=== PATIENT | female | born 1965 | race Caucasian/White ===

== ENCOUNTER → 2020-04-14 14:35 | Outpatient (BNVA) | payer MEDICARE, OTHER, SELFPAY | PROVIDERS: Family Provider Family Medicine; PCP Family Medicine; Visit Provider Family Medicine | DX: K21.9 Gastro-esophageal reflux disease without esophagitis (principal); K22.2 Esophageal obstruction; E11.9 Type 2 diabetes mellitus without complications; I10 Essential (primary) hypertension; Z79.4 Long term (current) use of insulin; M79.7 Fibromyalgia; E11.42 Type 2 diabetes mellitus with diabetic polyneuropathy; R11.0 Nausea; E78.2 Mixed hyperlipidemia; G25.0 Essential tremor; E87.1 Hypo-osmolality and hyponatremia; E78.5 Hyperlipidemia, unspecified | CPT/HCPCS: 85025 ==

== ENCOUNTER → 2020-05-29 16:15 | Outpatient (BNVA) | payer MEDICARE, OTHER, SELFPAY | PROVIDERS: Family Provider Family Medicine; PCP Family Medicine; Visit Provider Internal Medicine | DX: E11.9 Type 2 diabetes mellitus without complications (principal); Z79.4 Long term (current) use of insulin | CPT/HCPCS: 36415; 80053; 83036; 84443; 84681; 85025 ==

== ENCOUNTER → 2020-10-02 12:30 | Outpatient (BNVA) | payer MEDICARE, OTHER, SELFPAY | PROVIDERS: Family Provider Family Medicine; PCP Family Medicine; Referring Provider Family Medicine; Visit Provider Anesthesiology Pain Medicine | DX: G89.29 Other chronic pain (principal); M54.9 Dorsalgia, unspecified; M54.2 Cervicalgia; M25.511 Pain in right shoulder; M79.7 Fibromyalgia; G47.33 Obstructive sleep apnea (adult) (pediatric); F31.32 Bipolar disorder, current episode depressed, moderate; F43.12 Post-traumatic stress disorder, chronic; F41.1 Generalized anxiety disorder | CPT/HCPCS: 99205 ==

== ENCOUNTER → 2021-01-28 16:12 | Outpatient (BNVA) | payer MEDICARE, OTHER, SELFPAY | PROVIDERS: Family Provider Family Medicine; PCP Family Medicine; Visit Provider Family Medicine | DX: Z79.4 Long term (current) use of insulin; M79.7 Fibromyalgia; E11.42 Type 2 diabetes mellitus with diabetic polyneuropathy; I10 Essential (primary) hypertension; K22.2 Esophageal obstruction; K21.9 Gastro-esophageal reflux disease without esophagitis; R11.0 Nausea; T78.40XA Allergy, unspecified, initial encounter; Z79.899 Other long term (current) drug therapy; E78.2 Mixed hyperlipidemia; T78.40XD Allergy, unspecified, subsequent encounter | CPT/HCPCS: 80053; 80061; 80164; 83036 ==

== ENCOUNTER → 2021-03-27 15:43 | Outpatient (BNVA) | payer MEDICARE, OTHER, SELFPAY | PROVIDERS: Family Provider Family Medicine; PCP Family Medicine; Visit Provider Nurse Practitioner Family | DX: M54.9 Dorsalgia, unspecified (principal); M79.7 Fibromyalgia; R81 Glycosuria | CPT/HCPCS: 81000 ==

== ENCOUNTER → 2021-05-26 15:44 | Outpatient (BNVA) | payer MEDICARE, OTHER, SELFPAY | PROVIDERS: Family Provider Family Medicine; PCP Family Medicine; Visit Provider Internal Medicine | DX: Z20.822 Contact with and (suspected) exposure to COVID-19 (principal); R10.9 Unspecified abdominal pain | CPT/HCPCS: 87635 ==

== ENCOUNTER 2021-05-29 08:06 | Day surgery (SDC) | payer MEDICARE, OTHER, SELFPAY ==
[2021-05-27 11:48] VITALS: BMI 33.3
--- NOTE | 2021-05-29 08:27 | ANES.PREANE2 ---
Pre-Anesthetic Assessment Pre-Anesthetic Assessment: Height/Weight: Height 1.7 m Weight 96.615 kg Preop Diagnosis: n/v Proposed Procedure: Operation Date: 05/29/21 09:15 Proposed Procedures p EGD Dilation W/ Bougie [id number] R10.9(Not Applicable) - Eamon Valenzuela MD Was Beta Verónica taken within 24 hours: N/A Was Clonidine taken within 24 hours: N/A Social: Social History: No alcohol and No tobacco Exam: Pre-Anes Outpt Exam: alert, oriented x 3, clear to auscultation bilaterally and regular rate & rhythm Airway: Submandibular: WNL Cervical ROM: WNL MP: 2 Dentition: Full Pulmonary: Pulmonary: Sleep apnea CV/HEM: CV/HEM: HTN GI: GI: GERD Metabolic: Metabolic: DM and Hyperlipidemia Musc/skel: Musc/skel: OA/DJD Neuropsych: Neuropsych: Anxiety, Depression and Neuropathy Anesthetic Plan: ASA status: 3 Anesthesia: MAC Risk of > 500 ml blood loss (7ml/kg in children): No PFSH Anesthesia PFSH: Medical History (Updated 05/13/21 @ 14:50 by Eamon Valenzuela MD) Allergies Aneurysm Benign hypertension Bipolar disorder, current episode depressed, moderate Cholecystectomy planned Chronic post-traumatic stress disorder Common migraine with intractable migraine Constipation Creatinine elevation Degenerative disk disease Diabetic peripheral neuropathy Essential tremor Fibromyalgia Generalized anxiety disorder GERD (gastroesophageal reflux disease) Hyperlipidemia Hyponatremia Lumbar disc herniation Lupus (systemic lupus erythematosus) Nausea Obstructive sleep apnea (adult) (pediatric) Obstructive sleep apnea (adult) (pediatric) Type 2 diabetes mellitus without complications Surgical History S/P aneurysm repair S/P appendectomy S/P S/P hysterectomy Family History Other Diabetes Psychiatric illness Social History Smoking and tobacco status: never smoked Second hand smoke exposure: No Smoking risk assessment/counseling performed?: No Reason smoking risk assessment not done: not indicated Alcohol intake: never Desire information about alcohol rehabilitation?: No Counseling given: No Reason alcohol counseling not done: not indicated Desire information about substance/drug rehabilitation?: No Counseling given: No Reason substance/drug use counseling not done: not indicated History of recent travel: No Current gender identity: Female Data Anesthesia Cardiac Studies: No Data to Display
[2021-05-29 08:47] VITALS: BP 140/89; PULSE 89; RESP 18; TEMP 36.2; O2SAT 96
[2021-05-29] MEDS: sodium chloride 0.9% 1,000 ML 30 ML IV (09:06)
--- NOTE | 2021-05-29 09:30 | P.HP_ITS ---
Same Day Surgery H&P Indication for Procedure/HPI DATE OF PROCEDURE: May 29, 2021 CHIEF COMPLAINT/INDICATIONFOR SURGICAL PROCEDURE: Vomiting and abdominal pain PREOP DIAGNOSIS: n/v PLANNED PROCEDRUE: Operation Date: 05/29/21 09:15 Proposed Procedures p EGD Dilation W/ Bougie [id number] R10.9(Not Applicable) - Eamon Valenzuela MD Medications/Allergies* Home Medications Medication Instructions Recorded Confirmed Type aspirin 81 mg tablet 81 mg PO DAILY 04/15/20 05/29/21 History primidone 50 mg tablet 50 mg PO TID tab 04/15/20 05/29/21 History cholecalciferol (vitamin D3) 100 100 mcg PO DAILY 10/02/20 05/29/21 History mcg (4,000 unit) capsule Allergies/Adverse Reactions Allergy/AdvReac Type Severity Reaction Status Date / Time No Known Allergies Allergy Verified 05/29/21 08:42 Current Medications: Generic Name Dose Route Start Last Admin Trade Name Freq PRN Reason Stop Dose Admin Sodium Chloride 1,000 mls @ 30 mls/hr 05/29/21 08:30 05/29/21 09:06 Sodium Chloride 0.9% IV 30 mls/hr .Q24H DAYANA Administration Pertinent History/Comorbid Conditions* Medical History (Updated 05/13/21 @ 14:50 by Eamon Valenzuela MD) Allergies Aneurysm Benign hypertension Bipolar disorder, current episode depressed, moderate Cholecystectomy planned Chronic post-traumatic stress disorder Common migraine with intractable migraine Constipation Creatinine elevation Degenerative disk disease Diabetic peripheral neuropathy Essential tremor Fibromyalgia Generalized anxiety disorder GERD (gastroesophageal reflux disease) Hyperlipidemia Hyponatremia Lumbar disc herniation Lupus (systemic lupus erythematosus) Nausea Obstructive sleep apnea (adult) (pediatric) Obstructive sleep apnea (adult) (pediatric) Type 2 diabetes mellitus without complications Surgical History (Updated 10/18/19 @ 13:25 by Nani Nobles MD) S/P aneurysm repair S/P appendectomy S/P S/P hysterectomy Family History (Updated 10/15/19 @ 18:18 by Mary Carrillo LPN) Diabetes Psychiatric illness Social History Smoking and tobacco status: never smoked Second hand smoke exposure: No Smoking risk assessment/counseling performed?: No Reason smoking risk assessment not done: not indicated Alcohol intake: never Desire information about alcohol rehabilitation?: No Counseling given: No Reason alcohol counseling not done: not indicated Desire information about substance/drug rehabilitation?: No Counseling given: No Reason substance/drug use counseling not done: not indicated History of recent travel: No Current gender identity: Female Pertinent Exam Findings alert, oriented x 3, clear to auscultation bilaterally, regular rate & rhythm, operative site marked and procedure specific exam findings Recommendations Surgery/Procedure today Coding Level of Care Code Acute Store Warehouse Associate for Nereida Tomas
--- NOTE | 2021-05-29 09:30 | P.HP_ITS ---
Same Day Surgery H&P Indication for Procedure/HPI DATE OF PROCEDURE: May 29, 2021 PREOP DIAGNOSIS: n/v PLANNED PROCEDRUE: Operation Date: 05/29/21 09:15 Proposed Procedures p EGD Dilation W/ Bougie [id number] R10.9(Not Applicable) - Eamon Valenzuela MD Medications/Allergies* Home Medications Medication Instructions Recorded Confirmed Type aspirin 81 mg tablet 81 mg PO DAILY 04/15/20 05/29/21 History primidone 50 mg tablet 50 mg PO TID tab 04/15/20 05/29/21 History cholecalciferol (vitamin D3) 100 100 mcg PO DAILY 10/02/20 05/29/21 History mcg (4,000 unit) capsule Allergies/Adverse Reactions Allergy/AdvReac Type Severity Reaction Status Date / Time No Known Allergies Allergy Verified 05/29/21 08:42 Current Medications: Generic Name Dose Route Start Last Admin Trade Name Freq PRN Reason Stop Dose Admin Sodium Chloride 1,000 mls @ 30 mls/hr 05/29/21 08:30 05/29/21 09:06 Sodium Chloride 0.9% IV 30 mls/hr .Q24H DAYANA Administration Pertinent History/Comorbid Conditions* Medical History (Updated 05/13/21 @ 14:50 by Eamon Valenzuela MD) Allergies Aneurysm Benign hypertension Bipolar disorder, current episode depressed, moderate Cholecystectomy planned Chronic post-traumatic stress disorder Common migraine with intractable migraine Constipation Creatinine elevation Degenerative disk disease Diabetic peripheral neuropathy Essential tremor Fibromyalgia Generalized anxiety disorder GERD (gastroesophageal reflux disease) Hyperlipidemia Hyponatremia Lumbar disc herniation Lupus (systemic lupus erythematosus) Nausea Obstructive sleep apnea (adult) (pediatric) Obstructive sleep apnea (adult) (pediatric) Type 2 diabetes mellitus without complications Surgical History (Updated 10/18/19 @ 13:25 by Nani Nobles MD) S/P aneurysm repair S/P appendectomy S/P S/P hysterectomy Family History (Updated 10/15/19 @ 18:18 by Mary Carrillo LPN) Diabetes Psychiatric illness Social History Smoking and tobacco status: never smoked Second hand smoke exposure: No Smoking risk assessment/counseling performed?: No Reason smoking risk assessment not done: not indicated Alcohol intake: never Desire information about alcohol rehabilitation?: No Counseling given: No Reason alcohol counseling not done: not indicated Desire information about substance/drug rehabilitation?: No Counseling given: No Reason substance/drug use counseling not done: not indicated History of recent travel: No Current gender identity: Female Coding Level of Care Code Acute Mechanical Engineering Technician for Nereida Tomas
[2021-05-29 09:53] VITALS: BP 120/64; PULSE 75; RESP 16; TEMP 36.6; O2SAT 95
--- NOTE | 2021-05-29 10:04 | ANE.PACU2 ---
Documented by User: Lorenzo Barkley Jr, CRNA 05/29/21 10:04 Inpatient post-anesthesia follow up: Airway intact: Yes Vital signs: Temperature 97.9 F Pulse Rate 75 Respiratory Rate 16 Blood Pressure 120/64 Pulse Oximetry 95 Oxygen Delivery Me thod Nasal Cannula Oxygen Flow Rate 2 Fraction of Inspir ed Oxygen Hydration adequate: Yes Nausea and vomiting: No Pain level: 1 Mental status: Baseline
[2021-05-29 10:11] VITALS: BP 143/85; PULSE 77; RESP 16; O2SAT 91
[2021-05-29 10:20] LABS: Glucose Point of Care 123 mg/dL (70-110)
== END 2021-05-29 10:40 | disposition home or self-care (01) ==
PROVIDERS: PCP Family Medicine; Visit Provider Internal Medicine
DX: R11.2 Nausea with vomiting, unspecified (principal); R10.9 Unspecified abdominal pain; Z79.82 Long term (current) use of aspirin; I10 Essential (primary) hypertension; E11.42 Type 2 diabetes mellitus with diabetic polyneuropathy; M79.7 Fibromyalgia; K21.9 Gastro-esophageal reflux disease without esophagitis; E78.5 Hyperlipidemia, unspecified; G47.33 Obstructive sleep apnea (adult) (pediatric); Z83.3 Family history of diabetes mellitus; F41.9 Anxiety disorder, unspecified; F32.9 Major depressive disorder, single episode, unspecified
CPT/HCPCS: 36416; 43235; 82962; 96360; J2704; J7030

== ENCOUNTER → 2021-06-06 15:39 | Outpatient (BNVA) | payer MEDICARE, OTHER, SELFPAY | PROVIDERS: PCP Family Medicine; Visit Provider Nurse Practitioner Family | DX: R10.9 Unspecified abdominal pain (principal); N39.0 Urinary tract infection, site not specified | CPT/HCPCS: 81000; 87077; 87086; 87184 ==

== ENCOUNTER → 2021-07-07 10:51 | Outpatient (BNVA) | payer MEDICARE, OTHER, SELFPAY | PROVIDERS: PCP Family Medicine; Visit Provider Family Medicine | DX: E11.9 Type 2 diabetes mellitus without complications (principal); Z79.4 Long term (current) use of insulin; I11.0 Hypertensive heart disease with heart failure; I50.9 Heart failure, unspecified; R11.0 Nausea; M79.7 Fibromyalgia; E78.2 Mixed hyperlipidemia | CPT/HCPCS: 80053; 83036 ==

== ENCOUNTER → 2021-07-21 18:00 | Outpatient (BNVA) | payer MEDICARE, OTHER, SELFPAY | PROVIDERS: PCP Family Medicine; Visit Provider Family Medicine | DX: L29.9 Pruritus, unspecified (principal); M51.26 Other intervertebral disc displacement, lumbar region; M51.36 Other intervertebral disc degeneration, lumbar region; M79.7 Fibromyalgia; E87.1 Hypo-osmolality and hyponatremia | CPT/HCPCS: 80048; 86038; 86140 ==

== ENCOUNTER 2021-08-28 16:07 | Outpatient (CLI) | payer MEDICARE, OTHER, SELFPAY ==
--- NOTE | 2021-08-28 16:45 | MR_ITS ---
WS: [id number] MRI LUMBAR SPINE NONCONTRAST TECHNIQUE: Sagittal T1, T2 and STIR imaging. Axial T1 and T2 imaging. CLINICAL INFORMATION: ACUTE ON CHRONIC PAIN, NEEDED FOR FUTHER TX BY SPECIALIST COMPARISON: None. FINDINGS: Mild lumbar curve. No acute compression. No high-grade central canal stenosis. Slight retrolisthesis L1 on L2. L1-L2: Mild annular bulging. Spinal canal and foramen are patent. Mild facet arthropathy. L2-L3: Mild facet arthropathy. Spinal canal and foramen are patent. L3-L4: No significant disc bulging. Spinal canal and foramen are patent. Mild facet arthropathy. L4-L5: No significant disc bulging. Mild facet arthropathy. Mild right eccentric disc bulging and no significant left foraminal narrowing. Moderate facet arthropathy. L5-S1: No significant disc bulging. Mild facet arthropathy. Spinal canal and foramen are patent. Visualized pelvic bony structures: Normal. Paravertebral soft tissues: Normal. Small central protrusions at C5-C6 and C6-C7 with slight contact of the cervical cord. Small disc pro trusions in the lower thoracic spine at T10-T11 and T11-T12. MR/MR lumbar spine wo con* [id number] IMPRESSION: 1. Mild lumbar curve. No acute compression. No high-grade central canal stenos is. 2. Slight anterolisthesis L1 on L2. 3. Mild right eccentric disc bulging L4-5 slightly encroaches on the far exiti ng right L4 nerve root. 4. Mild facet arthropathy L3-L5. 5. Small central protrusions at C5-C6 and C6-C7 with slight contact of the cer vical cord. This can be further evaluated with cervical spine MRI. 6. Small disc protrusions in the lower thoracic spine at T10-T11 and T11-T12.
== END 2021-08-28 16:08 | disposition home or self-care (01) ==
LOC: RADSHAW 16:13
PROVIDERS: PCP Family Medicine; Visit Provider Family Medicine
DX: M51.26 Other intervertebral disc displacement, lumbar region (principal); M51.24 Other intervertebral disc displacement, thoracic region; M50.222 Other cervical disc displacement at C5-C6 level; M47.816 Spondylosis without myelopathy or radiculopathy, lumbar region
CPT/HCPCS: 72148

== ENCOUNTER → 2021-09-01 15:05 | Outpatient (BNVA) | payer MEDICARE, OTHER, SELFPAY | PROVIDERS: PCP Family Medicine; Visit Provider Internal Medicine | DX: N18.4 Chronic kidney disease, stage 4 (severe) (principal) | CPT/HCPCS: 80069; 81003; 82306; 82310; 82570; 83970; 84156; 85025 ==

== ENCOUNTER → 2021-09-24 12:49 | Outpatient (BNVA) | payer MEDICARE, OTHER, SELFPAY | PROVIDERS: PCP Family Medicine; Referring Provider Family Medicine; Visit Provider Anesthesiology Pain Medicine | DX: G89.29 Other chronic pain (principal); M54.50 Low back pain, unspecified; M54.2 Cervicalgia; M25.511 Pain in right shoulder; M79.7 Fibromyalgia; F31.32 Bipolar disorder, current episode depressed, moderate; F43.12 Post-traumatic stress disorder, chronic; G47.33 Obstructive sleep apnea (adult) (pediatric); F41.1 Generalized anxiety disorder; E11.9 Type 2 diabetes mellitus without complications; Z79.4 Long term (current) use of insulin | CPT/HCPCS: 99213; 99214 ==

== ENCOUNTER → 2021-09-28 14:25 | Outpatient (BNVA) | payer MEDICARE, OTHER, SELFPAY | PROVIDERS: PCP Family Medicine; Visit Provider Internal Medicine | DX: N18.32 Chronic kidney disease, stage 3b (principal) | CPT/HCPCS: 80074; 84155; 84165; 86160; 86225 ==

== ENCOUNTER 2021-11-05 17:09 | Emergency (ER) | payer MEDICARE, OTHER, SELFPAY ==
[2021-11-05 17:33] VITALS: BP 178/98; PULSE 99; RESP 16; TEMP 36.4; O2SAT 98; BMI 37.3
--- NOTE | 2021-11-05 17:49 | CTR_ITS ---
PROCEDURE INFORMATION: Exam: CT Abdomen And Pelvis Without Contrast Exam date and time: 11/05/2021 5:49 PM Age: 56 years old Clinical indication: Abdominal pain; Flank; Right; Prior surgery; Surgery date: 6+ months; Surgery type: Gb, appy, ; Additional info: Right flank pain TECHNIQUE: Imaging protocol: Computed tomography of the abdomen and pelvis without contrast. Radiation optimization: All CT scans at this facility use at least one of these dose optimization techniques: automated exposure control; mA and/or kV adjustment per patient size (includes targeted exams where dose is matched to clinical indication); or iterative reconstruction. COMPARISON: CT Abdomen/Pelvis Renal [id number] 07/11/2017 9:35 PM RADIATION DOSE METRICS: Total DLP (mGy-cm): 1829.29 FINDINGS: Lungs: Patchy right lower lobe minimal subsegmental atelectasis versus early infiltrate. Liver: Normal. No mass. Gallbladder and bile ducts: Cholecystectomy. Pancreas: Normal. No ductal dilation. Spleen: Normal. No splenomegaly. Adrenal glands: Normal. No mass. Kidneys and ureters: Normal. No hydronephrosis. Stomach and bowel: Constipation. Appendix: No evidence of appendicitis. Intraperitoneal space: Unremarkable. No free air. No significant fluid collection. Vasculature: Unremarkable. No abdominal aortic aneurysm. Lymph nodes: Unremarkable. No enlarged lymph nodes. Urinary bladder: Unremarkable as visualized. Reproductive: Unremarkable as visualized. Bones/joints: Unremarkable. No acute fracture. Soft tissues: Unremarkable. CT/CT kidney stone [id number] IMPRESSION: 1. Negative for acute inflammatory process in the abdomen or pelvis. 2. Patchy right lower lobe minimal subsegmental atelectasis versus early infiltrate. 3. Cholecystectomy. 4. Constipation.
--- NOTE | 2021-11-05 17:50 | W.ED.FEMALGU ---
HPI - Female Genitourinary General: Chief complaint: Urogenital-Female Stated complaint: Mtg sent for poss kidney stones Time Seen by Provider: 11/05/21 17:48 History of Present Illness: HPI Narrative: 56-year-old female comes in today with complaints of right flank pain radiating to the right lower abdomen. Patient reports pain for the last 3 to 4 days. Patient denies any fever. Patient saw primary care today and was believed to have a kidney stone. Patient does have a history of gallbladder and appendix removal. Patient appears in mild to moderate pain. Patient appears nontoxic. Associated symptoms: Reports abdominal pain and nausea Review of Systems GI: Reports: abdominal pain and nausea PFSH ED PFSH: Medical History Allergies Aneurysm Benign hypertension Lisinopril stopped due to hyponatremia Bipolar disorder, current episode depressed, moderate Cholecystectomy planned Chronic post-traumatic stress disorder Common migraine with intractable migraine Constipation Creatinine elevation Degenerative disk disease Diabetic peripheral neuropathy Essential tremor Fibromyalgia Generalized anxiety disorder GERD (gastroesophageal reflux disease) Hyperlipidemia Hyponatremia Take off lisinopril due to this. Lumbar disc herniation Lupus (systemic lupus erythematosus) Nausea Obstructive sleep apnea (adult) (pediatric) Obstructive sleep apnea (adult) (pediatric) Psychiatric care Type 2 diabetes mellitus without complications Surgical History S/P aneurysm repair S/P appendectomy S/P S/P hysterectomy Family History Other Diabetes Psychiatric illness Social History Smoking and tobacco status: never smoked Second hand smoke exposure: No Smoking risk assessment/counseling performed?: No Reason smoking risk assessment not done: not indicated Alcohol intake: never Desire information about alcohol rehabilitation?: No Counseling given: No Reason alcohol counseling not done: not indicated Desire information about substance/drug rehabilitation?: No Counseling given: No Reason substance/drug use counseling not done: not indicated History of recent travel: No Current gender identity: Female Physical Exam Const: GENERAL APPEARANCE: well kempt NUTRITIONAL APPEARANCE: obese HENMT: COMMON NORMALS: atraumatic HEAD & SCALP: atraumatic Resp: COMMON NORMALS: normal respiratory effort and clear to auscultation bilaterally AUSCULTATION: clear to auscultation bilaterally Cardio: COMMON NORMALS: regular rate and regular rhythm RATE: regular rate RHYTHM: regular rhythm GI: COMMON NORMALS: Soft to palpation PALPATION: Yes Soft to palpation and Yes Tenderness to palpation present (GI) Details: RLQ : COMMON NORMALS: Yes no CVA tenderness BLADDER/KIDNEY EXAM: Yes no CVA tenderness Back/Pelvis: COMMON NORMALS: no CVA tenderness Extremity: COMMON NORMALS: normal to inspection Neuro: GAIT: Yes Normal gait present Psych: APPEARANCE: Yes well kempt Skin: COMMON NORMALS: no rashes or lesions noted GENERAL SKIN EXAM: no rashes or lesions noted Course Vital Signs: Vital signs: Vital Signs Temperature 97.5 F L 11/05/21 17:33 Pulse Rate 99 11/05/21 17:33 Respiratory Rate 16 11/05/21 17:33 Blood Pressure 178/98 11/05/21 17:33 Pulse Oximetry 98 11/05/21 17:33 MDM - Female MDM Narrative: Medical decision making narrative: 56-year-old female comes in today with right flank pain radiating to the right lower quadrant of the abdomen. Patient was seen at primary care and they felt that she may have had a kidney stone and they recommended that she be evaluated in the ER. On exam patient has some tenderness in the right upper quadrant abdomen, she has normal bowel sounds, and vital signs are normal except for elevated blood pressure. Respirations are even. Heart rate is regular. Differential diagnosis includes not limited to bowel obstruction, renal calculi, diverticulitis, pancreatitis. Laboratory values were unremarkable and similar to patient's normal exams. CT of the abdomen and pelvis showed no sign of renal calculi or inflammatory process, but it did show constipation. Urinalysis showed trace of red blood cells. I believe the patient's pain is probably secondary to constipation and recommended MiraLAX three times a day until a good bowel cleanout. No signs of serious illness was noted, or a surgical abdomen. Patient was recommended to follow-up with primary care for further evaluation and treatment. Lab Data: Labs: Lab Results 11/05/21 11/05/21 11/05/21 18:35 18:35 18:50 WBC 8.1 10^3/uL 10^3/ uL (4.0-10.0) RBC 3.34 10^6/uL L 10 ^6/uL (4.1-5.3) Hgb 10.3 g/dL L g/dL (11.5-15.3) Hct 30.0 % L % (37.0-47.0) MCV 89.8 fl fl (81-99) MCH 30.8 pg pg (28.0-34.0) MCHC 34.3 g/dL g/dL (30.0-36.0) RDW 13.6 % % (12.1-15.1) Plt Count 225 10^3/cmm 10^3 /cmm (130-400) MPV 9.5 fL fL (7.4-10.4) Neut % (Auto) 73.4 % % Lymph % (Auto) 13.2 % % Hart % (Auto) 6.6 % % Eos % (Auto) 4.8 % % Baso % (Auto) 0.5 % % Neut # (Auto) 5.92 10^3/uL 10^3 /uL (1.8-7.7) Lymph # (Auto) 1.1 10^3/uL 10^3/ uL (0.8-4.8) Hart # (Auto) 0.5 10^3/uL 10^3/ uL (0.2-0.9) Eos # (Auto) 0.4 10^3/uL 10^3/ uL (0.0-0.8) Baso # (Auto) 0.0 10^3/uL 10^3/ uL (0.0-0.1) Nucleated RBC % (a uto) 0 % % Nucleated RBCs # 0.0 /100WBC /100W BC Sodium 128 mmol/L L mmol /L (136-145) Potassium 5.0 mmol/L mmol/L (3.5-5.1) Chloride 93 mmol/L L mmol/ L (98-107) Carbon Dioxide 21 mmol/L L mmol/ L (22-29) Anion Gap 19.0 (5-19) BUN 18 mg/dL mg/dL (6-20) Creatinine 1.2 mg/dL H mg/dL (0.5-0.9) GFR Calculation 46.3 mL/min L mL/ min (90-130) Glucose 258 mg/dL H mg/dL (65-115) Calculated Osmolal ity 277 mOsm/kg L mOs m/kg (285-295) Calcium 8.1 mg/dL L mg/dL (8.5-10.5) Total Bilirubin 0.2 mg/dL mg/dL (0.15-1.2) AST 22 U/L U/L (0-32) ALT 20 U/L U/L (0-33) Alkaline Phosphata se 195 IU/L H IU/L (35-105) Total Protein 6.0 g/dL L g/dL (6.6-8.7) Albumin 2.9 g/dL L g/dL (3.5-5.2) Globulin 3.1 g/dL g/dL (1.3-4.6) Urine Color Yellow (Yellow) Urine Appearance Clear (CLEAR) Urine pH 6 (5-7) Ur Specific Gravit y 1.015 (1.005-1.030) Urine Protein 1+ H (Negative) Urine Glucose (UA) Norm (Normal) Urine Ketones Negative (Negative) Urine Blood 2+ H (Negative) Urine Nitrate Negative (Negative) Urine Bilirubin Neg (Negative) Urine Urobilinogen Norm mg/dL mg/dL (Negative) Ur Leukocyte Naomy ase Negative (Negative) Urine RBC 0-4 /hpf H /hpf (0-2) Urine WBC None /hpf /hpf (0-5) Ur Squamous Epith Cells None /hpf /hpf (0-5) Amorphous Sediment Not Reportable Urine Bacteria Trace /hpf /hpf (NONE) Discharge Plan Discharge Patient Disposition: Home Clinical Impression: Abdominal pain Qualifiers: Abdominal location: right upper quadrant Qualified Code(s): R10.11 - Right upper quadrant pain Constipation Qualifiers: Constipation type: unspecified constipation type Qualified Code(s): K59.00 - Constipation, unspecified Condition: Stable Prescriptions: No Action primidone [Mysoline] 50 mg tablet 50 mg PO TID RF: 0 aspirin 81 mg tablet 81 mg PO DAILY RF: 0 cholecalciferol (vitamin D3) 100 mcg (4,000 unit) capsule 100 mcg PO DAILY RF: 0 gabapentin 600 mg tablet 600 mg PO TID 90 Days Qty: 270 RF: 1 fexofenadine [Katina Allergy] 180 mg tablet 180 mg PO Q24H 90 Days Qty: 90 RF: 1 fluticasone propionate 50 mcg/actuation spray,suspension 1 spray intranasal Q12H Qty: 15.8 RF: 5 hydroxyzine HCl 25 mg tablet 50 mg PO BID PRN (Reason: itching) Qty: 30 RF: 0 furosemide 20 mg tablet 40 mg PO QAM 90 Days Qty: 180 RF: 1 hydroxyzine HCl 25 mg tablet 25 mg PO .at bedtime PRN (Reason: itching) Qty: 30 RF: 0 divalproex 250 mg tablet,delayed release (DR/EC) See Rx Instructions .ROUTE .COMPLEX Qty: 30 RF: 2 divalproex 500 mg tablet,delayed release (DR/EC) See Rx Instructions .ROUTE .COMPLEX Qty: 30 RF: 2 venlafaxine [Effexor XR] 75 mg capsule,extended release 24hr 75 mg PO QAM Qty: 30 RF: 2 venlafaxine [Effexor XR] 150 mg capsule,extended release 24hr 150 mg PO QAM Qty: 30 RF: 2 Jardiance 25 mg tablet 25 mg PO QAM 90 Days Qty: 90 RF: 1 promethazine 12.5 mg tablet 12.5 mg PO TID PRN (Reason: nausea) 30 Days Qty: 90 RF: 5 metoprolol succinate 50 mg tablet extended release 24 hr 50 mg PO DAILY 90 Days Qty: 90 RF: 1 Premarin 0.9 mg tablet See Rx Instructions .ROUTE .COMPLEX 90 Days Qty: 90 RF: 1 cyclobenzaprine 10 mg tablet 10 mg PO TID 90 Days Qty: 270 RF: 1 atorvastatin 40 mg tablet 40 mg PO DAILY 90 Days Qty: 90 RF: 1 Toujeo Max U-300 SoloStar 300 unit/mL (3 mL) insulin pen 80 unit SUBCUT DAILY Qty: 6 RF: 5 insulin lispro [Humalog KwikPen Insulin] 100 unit/mL insulin pen 23 unit SUBCUT TID 30 Days Qty: 20.7 RF: 5 pantoprazole 40 mg tablet,delayed release (DR/EC) 40 mg PO DAILY 90 Days Qty: 90 RF: 1 clonazepam 0.5 mg tablet 0.5 mg PO .BID-TID PRN (Reason: anxiety) 30 Days Qty: 86 RF: 2 Discharge Orders: Discharge ED (Routine); Ordered 11/05/21 Ordered By: Lorenzo Marie Referrals: Nani Nobles MD [Primary Care Provider] - Discharge Diet: Usual diet Discharge Activity: Increase activity as tolerated Patient Instructions: Abdominal Pain (ED) Activity Restrictions/Additional Instructions: Monitor for high fever greater than 100.4, blood in vomit or stool, or uncontrolled pain. Follow-up with primary care for further instruction. Return to ER for new concerns. Coding Level of Care Code ED [place] Laboratory Assistant for Chg Fwd Exam Comprehensive
[2021-11-05 18:52] LABS: Basophils % 0.5 %; Eosinophils # 0.4 10^3/uL (0.0-0.8); Eosinophils % 4.8 %; Hemoglobin 10.3 g/dL (11.5-15.3); Lymphocytes # 1.1 10^3/uL (0.8-4.8); Lymphocytes % 13.2 %; Mean Corpuscular HGB Conc 34.3 g/dL (30.0-36.0); Mean Corpuscular Hemoglobin 30.8 pg (28.0-34.0); Mean Corpuscular Volume 89.8 fl (81-99); Mean Platelet Volume 9.5 fL (7.4-10.4); Monocytes # 0.5 10^3/uL (0.2-0.9); Monocytes % 6.6 %; Neutrophils # 5.92 10^3/uL (1.8-7.7); Neutrophils % 73.4 %; Nucleated Red Blood Cells % 0 %; Platelet Count 225 10^3/cmm (130-400); Red Blood Count 3.34 10^6/uL (4.1-5.3); Red Cell Distribution Width 13.6 % (12.1-15.1); White Blood Count 8.1 10^3/uL (4.0-10.0)
[2021-11-05 19:07] LABS: Glucose Urine UA Norm (Normal); Ketones Urine Negative (Negative); Protein Urine 1+ (Negative); Specific Gravity, Urine 1.015 (1.005-1.030); Urine Appearance Clear (CLEAR); Urine Color Yellow (Yellow); pH Urine 6 (5-7)
[2021-11-05 19:08] LABS: Add Urine Microscopic? YES; Bacteria Urine TRACE /hpf; Bilirubin Urine Neg (Negative); Blood Urine 2+ (Negative); Leukocyte Esterase Urine Negative (Negative); Nitrate Urine Negative (Negative); RBC Urine 0-4 /hpf (0-2); Urobilinogen Urine Norm (Negative)
[2021-11-05 19:21] LABS: Alanine Aminotransferase 20 U/L (0-33); Albumin Level 2.9 g/dL (3.5-5.2); Alkaline Phosphatase 195 IU/L (35-105); Aspartate Amino Transferase 22 U/L (0-32); Blood Urea Nitrogen 18 mg/dL (6-20); Calcium 8.1 mg/dL (8.5-10.5); Carbon Dioxide 21 mmol/L (22-29); Chloride 93 mmol/L (98-107); Globulin 3.1 g/dL (1.3-4.6); Glomerular Filtration Rate 46.3 mL/min (90-130); Glucose 258 mg/dL (65-115); Osmolality Calculated 277 mOsm/kg (285-295); Sodium 128 mmol/L (136-145); Total Bilirubin 0.2 mg/dL (0.15-1.2)
== END 2021-11-05 19:47 | disposition home or self-care (01) ==
PROVIDERS: Emergency Provider Nurse Practitioner Family; PCP Family Medicine
DX: K59.00 Constipation, unspecified (principal); R10.11 Right upper quadrant pain; Z79.82 Long term (current) use of aspirin; Z79.4 Long term (current) use of insulin; I10 Essential (primary) hypertension; E11.42 Type 2 diabetes mellitus with diabetic polyneuropathy; E78.5 Hyperlipidemia, unspecified
CPT/HCPCS: 74176; 80053; 81000; 81001; 85025; 99282

== ENCOUNTER → 2021-11-10 17:11 | Outpatient (BNVA) | payer MEDICARE, OTHER, SELFPAY | PROVIDERS: PCP Family Medicine; Visit Provider Internal Medicine | DX: N18.32 Chronic kidney disease, stage 3b (principal) | CPT/HCPCS: 80069; 82570; 84156; 85025 ==

== ENCOUNTER → 2021-11-30 17:41 | Outpatient (BNVA) | payer MEDICARE, OTHER, SELFPAY | PROVIDERS: PCP Family Medicine; Visit Provider Internal Medicine | DX: N18.30 Chronic kidney disease, stage 3 unspecified (principal); Z79.899 Other long term (current) drug therapy | CPT/HCPCS: 80069; 80164; 82570; 84156 ==

== ENCOUNTER → 2022-02-09 15:53 | Outpatient (BNVA) | payer MEDICARE, OTHER, SELFPAY | PROVIDERS: PCP Family Medicine; Visit Provider Family Medicine | DX: K22.2 Esophageal obstruction (principal); K21.9 Gastro-esophageal reflux disease without esophagitis; L29.9 Pruritus, unspecified; E11.42 Type 2 diabetes mellitus with diabetic polyneuropathy; T78.40XA Allergy, unspecified, initial encounter; M79.7 Fibromyalgia; E78.5 Hyperlipidemia, unspecified; Z79.4 Long term (current) use of insulin; E78.2 Mixed hyperlipidemia; E87.1 Hypo-osmolality and hyponatremia; J44.9 Chronic obstructive pulmonary disease, unspecified; N18.4 Chronic kidney disease, stage 4 (severe); R23.2 Flushing; R25.1 Tremor, unspecified; R53.83 Other fatigue; M25.50 Pain in unspecified joint; E11.22 Type 2 diabetes mellitus with diabetic chronic kidney disease; I12.9 Hypertensive chronic kidney disease with stage 1 through stage 4 chronic kidney disease, or unspecified chronic kidney disease | CPT/HCPCS: 80053; 80061; 81000; 83036; 84443; 85025; 85651; 86038; 86140; 87086 ==

== ENCOUNTER 2022-04-09 16:45 | Outpatient (CLI) | payer MEDICARE, OTHER, SELFPAY ==
[2022-04-09 17:21] LABS: Basophils % 0.2 %; Eosinophils # 0.2 10^3/uL (0.0-0.8); Eosinophils % 2.5 %; Hematocrit 32.9 % (37.0-47.0); Hemoglobin 10.4 g/dL (11.5-15.3); Lymphocytes # 1.1 10^3/uL (0.8-4.8); Mean Corpuscular HGB Conc 31.6 g/dL (30.0-36.0); Mean Corpuscular Hemoglobin 30.3 pg (28.0-34.0); Mean Corpuscular Volume 95.9 fl (81-99); Mean Platelet Volume 10.7 fL (7.4-10.4); Monocytes # 0.3 10^3/uL (0.2-0.9); Monocytes % 3.4 %; Neutrophils # 7.18 10^3/uL (1.8-7.7); Neutrophils % 81.4 %; Nucleated Red Blood Cells % 0 %; Platelet Count 178 10^3/cmm (130-400); Red Blood Count 3.43 10^6/uL (4.1-5.3); Red Cell Distribution Width 13.9 % (12.1-15.1); White Blood Count 8.8 10^3/uL (4.0-10.0)
[2022-04-09 17:38] LABS: Albumin Level 3.2 g/dL (3.5-5.2); Blood Urea Nitrogen 27 mg/dL (6-20); Calcium 8.2 mg/dL (8.5-10.5); Carbon Dioxide 22 mmol/L (22-29); Chloride 97 mmol/L (98-107); Glucose 225 mg/dL (65-115); Phosphorus 3.4 mg/dL (2.5-4.5); Sodium 135 mmol/L (136-145)
[2022-04-09 17:41] LABS: Add Urine Microscopic? YES; Anion Gap 20.5 (5-19); Bilirubin Urine Neg (Negative); Blood Urine 3+ (Negative); Glucose Urine UA 2+ (Normal); Ketones Urine Negative (Negative); Leukocyte Esterase Urine Negative (Negative); Nitrate Urine Negative (Negative); Potassium 4.5 mmol/L (3.5-5.1); Protein Urine 2+ (Negative); Urine Appearance Clear (CLEAR); Urine Color Yellow (Yellow); Urobilinogen Urine Norm (Negative); pH Urine 6 (5-7)
[2022-04-09 17:42] LABS: Add Urine Culture? Yes; Bacteria Urine 1+ /hpf; WBC Urine 0-4 /hpf (0-5)
[2022-04-09 18:04] LABS: Slide Review Slide Review Perform
== END 2022-04-09 16:46 | disposition home or self-care (01) ==
LOC: LAB 16:49
PROVIDERS: PCP Family Medicine; Visit Provider Internal Medicine
DX: N18.32 Chronic kidney disease, stage 3b (principal)
CPT/HCPCS: 36415; 80069; 81001; 85025

== ENCOUNTER → 2022-04-21 09:58 | Outpatient (BNVA) | payer MEDICARE, OTHER, SELFPAY | PROVIDERS: PCP Family Medicine; Referring Provider Family Medicine; Visit Provider Internal Medicine Rheumatology | DX: L93.2 Other local lupus erythematosus (principal); R53.83 Other fatigue; M15.9 Polyosteoarthritis, unspecified; Z11.59 Encounter for screening for other viral diseases; Z11.1 Encounter for screening for respiratory tuberculosis; Z79.899 Other long term (current) drug therapy; E11.22 Type 2 diabetes mellitus with diabetic chronic kidney disease; N18.9 Chronic kidney disease, unspecified; Z79.4 Long term (current) use of insulin; Z71.85 Encounter for immunization safety counseling | CPT/HCPCS: 73130; 73562; 73630; 81001; 82306; 82570; 84156; 86160; 86162; 86200; 86235; 86255; 86376; 86431; 86480; 86704; 86803; 87340; 99204 ==

== ENCOUNTER → 2022-06-21 16:46 | Outpatient (BNVA) | payer MEDICARE, OTHER, SELFPAY | PROVIDERS: PCP Family Medicine; Visit Provider Internal Medicine | DX: N18.9 Chronic kidney disease, unspecified (principal) | CPT/HCPCS: 80069; 81003; 82306; 82310; 82570; 83970; 84156; 85025 ==

== ENCOUNTER → 2022-08-11 15:08 | Outpatient (BNVA) | payer MEDICARE, OTHER, SELFPAY | PROVIDERS: PCP Family Medicine; Visit Provider Family Medicine | DX: E11.22 Type 2 diabetes mellitus with diabetic chronic kidney disease (principal); I13.0 Hypertensive heart and chronic kidney disease with heart failure and stage 1 through stage 4 chronic kidney disease, or unspecified chronic kidney disease; I50.9 Heart failure, unspecified; N18.9 Chronic kidney disease, unspecified | CPT/HCPCS: 80048; 80069; 82570; 83036; 84156; 84439; 84481; 85025; 86376; 86800 ==

== ENCOUNTER → 2022-10-14 14:51 | Outpatient (BNVA) | payer MEDICARE, OTHER, SELFPAY | PROVIDERS: PCP Family Medicine; Visit Provider Internal Medicine | DX: E11.22 Type 2 diabetes mellitus with diabetic chronic kidney disease (principal); N18.4 Chronic kidney disease, stage 4 (severe); R80.1 Persistent proteinuria, unspecified | CPT/HCPCS: 80069; 82570; 82652; 84156; 85025 ==

== ENCOUNTER → 2023-01-04 14:19 | Outpatient (BNVA) | payer MEDICARE, OTHER, SELFPAY | PROVIDERS: PCP Family Medicine; Visit Provider Family Medicine | DX: E13.22 Other specified diabetes mellitus with diabetic chronic kidney disease (principal); N18.9 Chronic kidney disease, unspecified; E78.2 Mixed hyperlipidemia | CPT/HCPCS: 80048; 80053; 80061; 80069; 80164; 82310; 82570; 83036; 83970; 84156; 84443; 85025 ==

== ENCOUNTER → 2023-02-03 13:52 | Outpatient (BNVA) | payer MEDICARE, OTHER, SELFPAY | PROVIDERS: PCP Family Medicine; Visit Provider Internal Medicine | DX: M79.7 Fibromyalgia (principal); N18.4 Chronic kidney disease, stage 4 (severe); L93.2 Other local lupus erythematosus | CPT/HCPCS: 80069; 81003; 82306; 82310; 82570; 83970; 84156; 85025 ==

== ENCOUNTER → 2023-02-09 17:45 | Outpatient (BNVA) | payer MEDICARE, OTHER, SELFPAY | PROVIDERS: PCP Family Medicine; Visit Provider Registered Nurse | DX: M32.9 Systemic lupus erythematosus, unspecified (principal); R53.83 Other fatigue; M25.50 Pain in unspecified joint; R25.1 Tremor, unspecified; R23.2 Flushing | CPT/HCPCS: 81003; 87086 ==

== ENCOUNTER → 2023-03-03 08:09 | Outpatient (BNVA) | payer MEDICARE, OTHER, SELFPAY | PROVIDERS: PCP Family Medicine; Visit Provider Nurse Practitioner Family | DX: I96 Gangrene, not elsewhere classified (principal); L97.512 Non-pressure chronic ulcer of other part of right foot with fat layer exposed | CPT/HCPCS: 97597; 97598; 99213 ==

== ENCOUNTER → 2023-03-10 09:31 | Outpatient (BNVA) | payer MEDICARE, OTHER, SELFPAY | PROVIDERS: PCP Family Medicine; Visit Provider Nurse Practitioner Family | DX: E11.621 Type 2 diabetes mellitus with foot ulcer (principal); I96 Gangrene, not elsewhere classified; L97.521 Non-pressure chronic ulcer of other part of left foot limited to breakdown of skin | CPT/HCPCS: 97597; A6219 ==

== ENCOUNTER → 2023-05-26 13:48 | Outpatient (BNVA) | payer MEDICARE, OTHER, SELFPAY | PROVIDERS: PCP Family Medicine; Visit Provider Internal Medicine Rheumatology | DX: R53.83 Other fatigue (principal); M19.90 Unspecified osteoarthritis, unspecified site; Z79.899 Other long term (current) drug therapy; Z71.85 Encounter for immunization safety counseling; L93.1 Subacute cutaneous lupus erythematosus; E11.42 Type 2 diabetes mellitus with diabetic polyneuropathy; E11.22 Type 2 diabetes mellitus with diabetic chronic kidney disease; N18.9 Chronic kidney disease, unspecified; Z79.4 Long term (current) use of insulin | CPT/HCPCS: 99214 ==

== ENCOUNTER → 2023-07-06 16:08 | Outpatient (BNVA) | payer MEDICARE, OTHER, SELFPAY | PROVIDERS: PCP Family Medicine; Visit Provider Family Medicine | DX: M79.7 Fibromyalgia (principal); E03.9 Hypothyroidism, unspecified; I10 Essential (primary) hypertension; G25.0 Essential tremor; R53.83 Other fatigue | CPT/HCPCS: 80053; 82607; 82746; 83735; 84439; 84443; 84481; 85025; 86376; 86800 ==

== ENCOUNTER → 2023-07-26 16:46 | Outpatient (BNVA) | payer MEDICARE, OTHER, SELFPAY | PROVIDERS: PCP Family Medicine; Referring Provider Family Medicine; Visit Provider Family Medicine | DX: N18.4 Chronic kidney disease, stage 4 (severe) (principal); M79.7 Fibromyalgia; I50.9 Heart failure, unspecified; E03.9 Hypothyroidism, unspecified | CPT/HCPCS: 80048; 80069; 82542; 82570; 84156; 85025 ==

== ENCOUNTER → 2023-09-26 10:24 | Outpatient (BNVA) | payer MEDICARE, OTHER, SELFPAY | PROVIDERS: PCP Family Medicine; Visit Provider Psychiatry & Neurology Neurology | DX: G25.0 Essential tremor (principal); E11.42 Type 2 diabetes mellitus with diabetic polyneuropathy; R26.89 Other abnormalities of gait and mobility; R29.90 Unspecified symptoms and signs involving the nervous system; E11.22 Type 2 diabetes mellitus with diabetic chronic kidney disease; I12.9 Hypertensive chronic kidney disease with stage 1 through stage 4 chronic kidney disease, or unspecified chronic kidney disease; N18.9 Chronic kidney disease, unspecified; Z79.4 Long term (current) use of insulin | CPT/HCPCS: 99203 ==

== ENCOUNTER → 2023-10-18 11:34 | Outpatient (BNVA) | payer MEDICARE, OTHER, SELFPAY | PROVIDERS: PCP Family Medicine; Visit Provider Internal Medicine | DX: E11.42 Type 2 diabetes mellitus with diabetic polyneuropathy (principal); E03.9 Hypothyroidism, unspecified; E78.2 Mixed hyperlipidemia; E11.22 Type 2 diabetes mellitus with diabetic chronic kidney disease; E11.319 Type 2 diabetes mellitus with unspecified diabetic retinopathy without macular edema; N18.4 Chronic kidney disease, stage 4 (severe); Z79.4 Long term (current) use of insulin; Z79.890 Hormone replacement therapy | CPT/HCPCS: 36415; 80053; 80061; 82044; 83036; 84439; 84443; 99204 ==

== ENCOUNTER 2023-11-09 00:16 | Emergency (ER) | payer MEDICARE, OTHER, SELFPAY ==
[2023-11-09 00:17] VITALS: BP 141/62; PULSE 73; RESP 18; TEMP 36.7; O2SAT 94; BMI 37.5
--- NOTE | 2023-11-09 00:30 | XRR_ITS ---
PROCEDURE INFORMATION: Exam: XR Chest Exam date and time: 11/09/2023 1:08 AM Age: 58 years old Clinical indication: Other: Syncope; Additional info: Dizziness, falls TECHNIQUE: Imaging protocol: Radiologic exam of the chest. Views: 1 view. COMPARISON: CT cervical spin wo con* [id number] 11/09/2023 1:01 AM FINDINGS: Lungs: Unremarkable. No consolidation. Pleural spaces: Unremarkable. No pleural effusion. No pneumothorax. Heart/Mediastinum: Unremarkable. No cardiomegaly. Bones/joints: Unremarkable. XR/XR chest 1V portable [id number] IMPRESSION: No acute findings.
--- NOTE | 2023-11-09 00:30 | CTR_ITS ---
PROCEDURE INFORMATION: Exam: CT Head Without Contrast Exam date and time: 11/09/2023 12:58 AM Age: 58 years old Clinical indication: Injury or trauma; Blunt trauma (contusions or hematomas); Patient HX: Pain to back of head due to fall; Additional info: Dizzy, fall, loc TECHNIQUE: Imaging protocol: Computed tomography of the head without contrast. Radiation optimization: All CT scans at this facility use at least one of these dose optimization techniques: automated exposure control; mA and/or kV adjustment per patient size (includes targeted exams where dose is matched to clinical indication); or iterative reconstruction. COMPARISON: No relevant prior studies available. RADIATION DOSE METRICS: Total DLP (mGy-cm): 1071 FINDINGS: Brain: No acute intra- or extra axial fluid collections are identified. The basal cisterns are patent. No mass effect or midline shift is seen. The gutierrez-white matter differentiation is normal. Periventricular hypoattenuation are nonspecific but likely the sequela of chronic small vessel ischemic disease. Cerebral ventricles: Moderate generalized cerebral and cerebellar volume loss and ex vacuo dilation of ventricles. Paranasal sinuses: The paranasal sinuses appear grossly clear. Mastoid air cells: The mastoid air cells appear grossly clear. Orbital cavities: The patient is status post cataract extraction. Bones/joints: No acute calvarial fracture is identified. Soft tissues: No soft tissue abnormalities identified. Vasculature: There is a stent in the left carotid siphon. CT/CT head wo con* [id number] IMPRESSION: No evidence of acute intracranial hemorrhage, mass effect, or midline shift.
--- NOTE | 2023-11-09 00:31 | CTR_ITS ---
PROCEDURE INFORMATION: Exam: CT Cervical Spine Without Contrast Exam date and time: 11/09/2023 1:01 AM Age: 58 years old Clinical indication: Injury or trauma; Blunt trauma; Patient HX: Pain to back of head due to fall; Additional info: Dizzy, fall, loc TECHNIQUE: Imaging protocol: Computed tomography of the cervical spine without contrast. Radiation optimization: All CT scans at this facility use at least one of these dose optimization techniques: automated exposure control; mA and/or kV adjustment per patient size (includes targeted exams where dose is matched to clinical indication); or iterative reconstruction. COMPARISON: CT head wo con* [id number] 11/09/2023 12:58 AM RADIATION DOSE METRICS: Total DLP (mGy-cm): 278.37 FINDINGS: Bones/joints: Straightening of the cervical lordosis. The alignment is otherwise maintained. The vertebral body heights are maintained. No evidence of fractures. Advanced endplate degenerative changes noted at C5-C6 and C6-C7 with endplate sclerosis, subchondral erosions and cyst formation, and decreased disc space heights, along with disc osteophyte complex resulting in indentation on the ventral aspect of thecal sac and mild spinal canal narrowing at these levels. Mild multilevel facet arthropathy and uncovertebral hypertrophy with the same degree of mild neuroforaminal stenosis at multiple levels. There are degenerative changes of the temporomandibular joints. Dental: Scattered dental caries. Artifacts from the dental amalgam limits evaluation of the oral cavity.. Lungs: Lung apices are normal. Soft tissues: There are atherosclerotic calcifications of the carotid bifurcations. CT/CT cervical spin wo con* [id number] IMPRESSION: No acute fracture or traumatic malalignment in the cervical spine.
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
--- NOTE | 2023-11-09 00:42 | ECG_ITS ---
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 Measurements Intervals [place] Rate: 68 P: 39 MT: 178 QRS: -7 QRSD: 82 T: 121 QT: 414 QTc: 441 Interpretive Statements SINUS RHYTHM ST DEVIATION AND MODERATE T-WAVE ABNORMALITY, CONSIDER LATERAL ISCHEMIA [-0.1+ mV T-WAVE IN I/aVL/V5/V6] Compared to ECG 07/11/2017 22:47:12 T-wave abnormality now present Possible ischemia now present Electronically Signed On 11-09-2023 21:40:41 BATTALION CHIEF by Bart Copeland M.D. [email or web address]
[2023-11-09 00:46] LABS: Basophils % 0.4 %; Eosinophils # 0.2 10^3/uL (0.0-0.8); Eosinophils % 2.7 %; Hematocrit 35.7 % (36-47); Lymphocytes # 1.3 10^3/uL (0.8-4.8); Lymphocytes % 18.9 %; Mean Corpuscular HGB Conc 33.1 g/dL (30-55); Mean Corpuscular Hemoglobin 31.8 pg (27-33); Mean Corpuscular Volume 96.2 fl (85-98); Mean Platelet Volume 10.6 fL (7.4-10.4); Monocytes # 0.4 10^3/uL (0.2-0.9); Monocytes % 5.6 %; Neutrophils # 5.12 10^3/uL (1.8-7.7); Neutrophils % 72.1 %; Nucleated Red Blood Cells % 0 %; Platelet Count 212 10^3/cmm (157-399); Red Blood Count 3.71 10^6/uL (3.85-5.65); Red Cell Distribution Width 13.6 % (12.1-15.1)
[2023-11-09 00:58] VITALS: PULSE 68; RESP 16; O2SAT 97
[2023-11-09 01:01] LABS: Add Urine Microscopic? NO; Charge for UA Resulting for Rev
[2023-11-09 01:02] LABS: Bilirubin Urine Neg (Negative); Blood Urine Neg (Negative); Glucose Urine UA 4+ (Normal); Ketones Urine Negative (Negative); Leukocyte Esterase Urine Negative (Negative); Nitrate Urine Negative (Negative); Protein Urine Neg (Negative); Specific Gravity, Urine 1.005 (1.005-1.030); Urine Appearance Clear (CLEAR); Urine Color Light yellow (Yellow); Urobilinogen Urine Neg (Negative); pH Urine 5 (5-7)
[2023-11-09 01:04] LABS: Troponin(5th) Baseline 37 ng/L (0-10)
[2023-11-09 01:08] LABS: Alanine Aminotransferase 17 U/L (0-33); Albumin Level 3.6 g/dL (3.5-5.2); Alkaline Phosphatase 230 U/L (35-105); Blood Urea Nitrogen 38 mg/dL (6-20); Calcium 9.4 mg/dL (8.5-10.5); Carbon Dioxide 27 mmol/L (22-29); Chloride 96 mmol/L (98-107); Glomerular Filtration Rate 24.1 mL/min (90-130); Glucose 89 mg/dL (65-115); Osmolality Calculated 287 mOsm/kg (285-295); Sodium 134 mmol/L (136-145); Total Bilirubin 0.2 mg/dL (0.15-1.2); Total Protein 6.6 g/dL (6.6-8.7)
[2023-11-09 01:10] LABS: Anion Gap 15.9 (5-19); Aspartate Amino Transferase 21 U/L (0-32); Potassium 4.9 mmol/L (3.5-5.1)
[2023-11-09] MEDS: sodium chloride 0.9% 1,000 ML 999 ML IV (01:21)
[2023-11-09 01:47] VITALS: BP 115/67; PULSE 70; RESP 17; O2SAT 91
[2023-11-09 01:47] LABS: NT Pro B Type Natriuretic Pept 328 pg/mL (0-125)
[2023-11-09 03:04] LABS: Troponin 5 2HR 35.16 ng/L (0-10)
[2023-11-09 03:22] LABS: Troponin 5 2HR Delta -1.84 ABS# (0-10)
[2023-11-09 03:30] VITALS: BP 143/89; PULSE 71; RESP 14; O2SAT 95
== END 2023-11-09 05:09 | disposition home or self-care (01) ==
PROVIDERS: Emergency Provider Physician Assistant; PCP Family Medicine
DX: I95.1 Orthostatic hypotension (principal); R42 Dizziness and giddiness; Z79.82 Long term (current) use of aspirin; Z79.4 Long term (current) use of insulin; M32.9 Systemic lupus erythematosus, unspecified; E78.5 Hyperlipidemia, unspecified; I10 Essential (primary) hypertension; E11.42 Type 2 diabetes mellitus with diabetic polyneuropathy
CPT/HCPCS: 36415; 70450; 71045; 72125; 80053; 81003; 83880; 84484; 85025; 93005; 96360; 99285; J7030

== ENCOUNTER 2023-11-22 13:39 | Outpatient (CLI) | payer MEDICARE, OTHER, SELFPAY ==
--- NOTE | 2023-11-22 14:00 | USCV_ITS ---
Lindsey Richter Age: 58 Gender: F : 1965 Exam Date: 11/22/2023 14:05 Ordering Phys: Nani Nobles MD Technologist: CT Exam Location: [facility] – [place] Indication: sob,hf BP: 140 / 88 HR: 87 Rhythm: Sinus Technical Quality: Suboptimal MEASUREMENTS (Male / Female) Normal Values 2D ECHO LV Chamber Size 3.2 cm RV Chamber Size 2.6 cm LVOT Diameter 2.0 cm LV Ejection Fraction MOD 2C 69.0 % LV Ejection Fraction 2C AL 67.8 % LA Diameter 4.0 cm LA Width 3.6 cm LA Height 5.1 cm RA Width 3.3 cm RA Height 4.9 cm Aorta at Sinotubular Diameter 2.5 cm M-MODE Aortic Annulus Diameter 3.2 cm LA Ao Ratio MM 1.4 MV E Point Septal Separation 0.3 cm DOPPLER AV Peak Velocity 136.0 cm/s LVOT Peak Velocity 115.0 cm/s AV Area Cont Eq vti 2.9 cm squared AV Area Cont Eq pk 2.7 cm squared MV E' Velocity 6.0 cm/s TR Peak Velocity 101.0 cm/s TR Peak Gradient 4.1 mmHg TV Peak E Velocity 45.0 cm/s Right Atrial Pressure 3.0 mmHg Pulmonary Artery Systolic Pressu 7.1 mmHg PV Peak Velocity 113.0 cm/s FINDINGS Left Ventricle Normal left ventricular size, systolic function and wall thickness, with no regional wall motion abnormalities. Grade I/IV diastolic dysfunction (abnormal relaxation filling pattern), normal to mildly elevated filling pressures. Left ventricular ejection fraction is estimated at 60 %. Right Ventricle Normal right ventricular size and systolic function. Right Atrium The right atrium is normal in size. Left Atrium The left atrium is normal in size. Mitral Valve Structurally normal mitral valve without significant stenosis or prolapse. There is no mitral regurgitation. Aortic Valve Structurally normal aortic valve without significant sclerosis or stenosis. There is no aortic regurgitation. Tricuspid Valve Structurally normal tricuspid valve without significant stenosis or regurgitation. Pulmonary artery systolic pressure is normal. Pulmonic Valve Pulmonic valve not well visualized. Pericardium Normal pericardium without effusion. Aorta Normal ascending aorta dimension. IVC The inferior vena cava appears normal. CONCLUSIONS Normal left ventricular size, systolic function and wall thickness, with no regional wall motion abnormalities. Grade I/IV diastolic dysfunction (abnormal relaxation filling pattern), normal to mildly elevated filling pressures. Left ventricular ejection fraction is estimated at 60 %. There are no prior echocardiogram studies to compare. Dr. Joe Anglin MD (Electronically Signed) Final Date: 22 November 2023 16:38 S
== END 2023-11-22 13:40 | disposition home or self-care (01) ==
LOC: RAD 13:40
PROVIDERS: PCP Family Medicine; Visit Provider Family Medicine
DX: I50.9 Heart failure, unspecified (principal); I10 Essential (primary) hypertension; I95.1 Orthostatic hypotension
CPT/HCPCS: 93306

== ENCOUNTER → 2024-01-23 14:19 | Outpatient (BNVA) | payer MEDICARE, OTHER, SELFPAY | PROVIDERS: PCP Family Medicine; Referring Provider Internal Medicine; Visit Provider Internal Medicine | DX: N18.4 Chronic kidney disease, stage 4 (severe) (principal) | CPT/HCPCS: 85025 ==

== ENCOUNTER → 2024-01-31 14:09 | Outpatient (BNVA) | payer MEDICARE, OTHER, SELFPAY | PROVIDERS: PCP Family Medicine; Referring Provider Family Medicine; Visit Provider Family Medicine | DX: N18.4 Chronic kidney disease, stage 4 (severe) (principal) | CPT/HCPCS: 80069; 82310; 82570; 83970; 84156; 85025 ==

== ENCOUNTER → 2024-05-29 14:18 | Outpatient (BNVA) | payer MEDICARE, OTHER, SELFPAY | PROVIDERS: PCP Family Medicine; Visit Provider Family Medicine | DX: N18.4 Chronic kidney disease, stage 4 (severe) (principal) | CPT/HCPCS: 80053; 80069; 82043; 82310; 82652; 83036; 83970; 84439; 84443; 85025 ==

== ENCOUNTER → 2024-09-27 14:51 | Outpatient (BNVA) | payer MEDICARE, OTHER, SELFPAY | PROVIDERS: PCP Family Medicine; Visit Provider Family Medicine | DX: I10 Essential (primary) hypertension (principal); E11.9 Type 2 diabetes mellitus without complications; M32.9 Systemic lupus erythematosus, unspecified; F41.1 Generalized anxiety disorder; E03.9 Hypothyroidism, unspecified; Z51.81 Encounter for therapeutic drug level monitoring | CPT/HCPCS: 80053; 80061; 80164; 83036; 84439; 84443; 84481; 85025; 85651; 86140 ==

== ENCOUNTER 2024-10-05 14:48 | Outpatient (CLI) | payer MEDICARE, OTHER, SELFPAY ==
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
[2024-10-05] MEDS: gadobenate dimeglumine 20 mL vial IV (16:16)
== END 2024-10-05 14:49 | disposition home or self-care (01) ==
LOC: RAD 14:51
PROVIDERS: PCP Family Medicine; Visit Provider Psychiatry & Neurology Neurology
DX: R94.02 Abnormal brain scan (principal); M25.78 Osteophyte, vertebrae; F41.1 Generalized anxiety disorder; F43.12 Post-traumatic stress disorder, chronic; G25.0 Essential tremor; G43.019 Migraine without aura, intractable, without status migrainosus
CPT/HCPCS: 70553; 72156

== ENCOUNTER → 2024-10-16 07:53 | Outpatient (BNVA) | payer MEDICARE, OTHER, SELFPAY | PROVIDERS: PCP Family Medicine; Visit Provider Internal Medicine | DX: E78.2 Mixed hyperlipidemia; E11.42 Type 2 diabetes mellitus with diabetic polyneuropathy; E03.9 Hypothyroidism, unspecified; N18.4 Chronic kidney disease, stage 4 (severe); E11.22 Type 2 diabetes mellitus with diabetic chronic kidney disease; Z79.4 Long term (current) use of insulin; Z79.84 Long term (current) use of oral hypoglycemic drugs; Z79.890 Hormone replacement therapy | CPT/HCPCS: 99214 ==

== ENCOUNTER → 2024-11-19 14:16 | Outpatient (BNVA) | payer MEDICARE, OTHER, SELFPAY | PROVIDERS: PCP Family Medicine; Referring Provider Internal Medicine; Visit Provider Internal Medicine | DX: E13.9 Other specified diabetes mellitus without complications (principal) | CPT/HCPCS: 80053; 84681; 86337; 86341 ==

== ENCOUNTER → 2025-01-08 14:58 | Outpatient (BNVA) | payer MEDICARE, OTHER, SELFPAY | PROVIDERS: PCP Family Medicine; Visit Provider Family Medicine | DX: N18.4 Chronic kidney disease, stage 4 (severe) (principal) | CPT/HCPCS: 80053; 80061; 80069; 82043; 82306; 82310; 82570; 83036; 83970; 84156; 84439; 84443; 85025 ==

== ENCOUNTER → 2025-01-23 11:23 | Outpatient (BNVA) | payer MEDICARE, OTHER, SELFPAY | PROVIDERS: PCP Family Medicine; Visit Provider Internal Medicine | DX: E11.42 Type 2 diabetes mellitus with diabetic polyneuropathy (principal); E03.9 Hypothyroidism, unspecified; N18.4 Chronic kidney disease, stage 4 (severe); E78.2 Mixed hyperlipidemia | CPT/HCPCS: 99214 ==

== ENCOUNTER → 2025-03-18 15:11 | Outpatient (BNVA) | payer MEDICARE, OTHER, SELFPAY | PROVIDERS: PCP Family Medicine; Referring Provider Family Medicine; Visit Provider Psychiatry & Neurology Neurology | DX: R93.7 Abnormal findings on diagnostic imaging of other parts of musculoskeletal system (principal); G25.0 Essential tremor; R29.90 Unspecified symptoms and signs involving the nervous system | CPT/HCPCS: 99212 ==

== ENCOUNTER → 2025-03-26 13:26 | Outpatient (BNVA) | payer MEDICARE, OTHER, SELFPAY | PROVIDERS: PCP Family Medicine; Visit Provider Orthopaedic Surgery | DX: M54.2 Cervicalgia (principal) | CPT/HCPCS: 72050; 99204 ==

== ENCOUNTER → 2025-05-20 13:56 | Outpatient (BNVA) | payer MEDICARE, OTHER, SELFPAY | PROVIDERS: Family Provider Family Medicine; PCP Family Medicine; Referring Provider Family Medicine; Visit Provider Family Medicine | DX: N18.4 Chronic kidney disease, stage 4 (severe) (principal) | CPT/HCPCS: 80069; 82043; 82310; 83970; 85025 ==

== ENCOUNTER → 2025-07-31 12:30 | Outpatient (BNVA) | payer MEDICARE, OTHER, SELFPAY | PROVIDERS: PCP Family Medicine; Visit Provider Internal Medicine | DX: E11.42 Type 2 diabetes mellitus with diabetic polyneuropathy (principal); E03.9 Hypothyroidism, unspecified; E78.2 Mixed hyperlipidemia | CPT/HCPCS: 36415; 80053; 80061; 82044; 82607; 83036; 84439; 84443; 99214 ==